=== PATIENT | female | born 1955 | race Caucasian/White ===

== ENCOUNTER 2018-09-04 16:51 | Inpatient (IN) | payer BC, SELFPAY ==
[~2018-09-04 16:51] MED LIST: Iopamidol 370 76% 100 ML VIAL ONE; Sodium Chloride 0.9% 1,000 ML BAG ONE
[2018-09-04 17:21] LABS: #Basophils 0.1 thou/uL (0.0-0.2); #Eosinphils 0.2 thou/uL (0.0-0.7); #Lymphocytes 3.2 thou/uL (1.20-3.40); #Monocytes 0.5 thou/uL (0.11-0.59); %Basophils 0.8 % (0.0-1.0); %Eosinophils 2.2 % (0.0-10.0); %Lymphocytes 40.5 % (21.0-51.0); %Monocytes 6.8 % (0.0-10.0); %Neutrophils 49.7 % (42.0-75.0); Hemoglobin 14.2 g/dL (12.0-16.0); Mean Corpuscular HGB CONC 34.4 g/dL (32.0-36.0); Mean Corpuscular Hemoglobin 31.5 pg (27.0-31.0); Mean Corpuscular Volume 91.6 fL (78.0-98.0); Mean Platelet Volume 7.5 fL (7.4-10.4); Platelet Count 308 thou/uL (130-400); RBC Distribution Width 11.6 % (11.5-14.5); Red Blood Cell (RBC) Count 4.51 mill/uL (4.20-5.40)
[2018-09-04 17:42] LABS: ALT (SGPT) 15 U/L (8-55); AST (SGOT) 23 U/L (5-34); Albumin 4.6 g/dL (3.4-4.8); Alkaline Phosphatase 62 U/L (40-150); Anion Gap 17 mmol/L (10-20); BUN (Urea Nitrogen) 13 mg/dL (9.8-20.1); Bilirubin, Total 0.3 mg/dL (0.2-1.2); CK (CPK) 87 U/L (29-168); Calc. Creatinine Clearance 0 mL/min (70-130); Calcium 10.2 mg/dL (7.8-10.44); Carbon Dioxide 23 mmol/L (23-31); Chloride 103 mmol/L (98-107); Estimated GFR-MDRD 75; Glucose 94 mg/dL (80-115); Potassium 3.6 mmol/L (3.5-5.1); Protein, Total 7.6 g/dL (6.0-8.3); Sodium 139 mmol/L (136-145)
[2018-09-04 17:47] LABS: CKMB 1.2 ng/mL (0-6.6); Troponin I 0.043 ng/mL (< 0.028)
--- NOTE | 2018-09-04 17:54 | RAD ---
SINGLE VIEW OF THE CHEST: 09/04/18 COMPARISON: None. HISTORY: Chest pain that began 15 minutes prior to arrival. FINDINGS: Single view of the chest shows a normal sized cardiomediastinal silhouette. There is no evidence of c onsolidation, mass, or pleural effusion. The bones are unremarkable. IMPRESSION: No evidence of acute cardiopulmonary disease. POS: [facility]
[2018-09-04] MEDS ORDERED: Nitroglycerin 2% Ointment 1 INCH/1 GM Packet ONE (18:31)
--- NOTE | 2018-09-04 19:33 | PDOC.FPRHP ---
- History of Present Illness Chief Complaint: Chest Pain History of Present Illness: 62 yo F presents with CP that began around 16:30 today while seated watching a football game. Pain continually worsened and she presented to ED 30 minutes later. Pain described as "tightness", radiating to back, midsternal, pt felt "flushed". Associated with some SOB and weakness initially which has since improved. Pain originally >10/10, now 2/10. Not affected by nitro. No N/V, never had this pain in past. Has not seen physician in >3 years. ED Course: Nitro - Allergies/Adverse Reactions Allergies Allergy/AdvReac Type Severity Reaction Status Date / Time No Known Drug Allergies Allergy Verified 09/05/18 00:23 - Home Medications Medication Instructions Recorded Confirmed Type Atorvastatin Calcium [Lipitor] 40 mg PO HS #30 tab 09/05/18 Rx Clopidogrel Bisulfate [Plavix] 75 mg PO DAILY #30 tab 09/05/18 Rx Multivitamin [Multivitamins] 1 cap PO DAILY 09/05/18 09/05/18 History - History PMHx: HLD PSHx: Hysterectomy, breast implants, hemorrhoid surgery FHx: Father CHF and prostate CA Social: Smoker off and on for her whole life, currently smokes 1/3 PPD. - Review of Systems General: denies: fever/chills Eyes: denies: eye pain, vision changes ENT: denies: nasal congestion, rhinorrhea Respiratory: reports: shortness of breath. denies: cough Cardiovascular: reports: chest pain, palpitation Gastrointestinal: denies: nausea, vomiting Genitourinary: denies: dysuria Skin: denies: rashes, lesions Musculoskeletal: denies: pain, tenderness Neurological: reports: weakness. denies: numbness Psychological: denies: anxiety, depression - Vital signs BP: 147/92 HR: 82 RR: 16 Tmax: 97.9 Pox: 97% on RA Wt: 52 kg - Physical Exam Constitutional: NAD, awake, alert and oriented HEENT: normocephalic and atraumatic, grossly normal vision, grossly normal hearing Neck: FROM, trachea midline Chest: no-tender to palpation Heart: RRR, normal S1/S2, no murmurs/rubs/gallops, pulses present, no edema Lungs: CTAB, no respiratory distress, no rales/rhonchi, no wheezing Abdomen: soft, non-tender, bowel sounds present, no masses/distention Musculoskeletal: normal structure, normal tone Neurological: no focal deficit Skin: no rash/lesions, good turgor, capillary refill <2 seconds Heme/Lymphatic: no unusual bruising or bleeding Psychiatric: normal mood and affect FMR H&P: Results - Labs Result Diagrams: 09/05/18 04:07 09/05/18 04:07 Lab results: WBC 8.0 thou/uL (4.8-10.8) 09/04/18 17:11 Hgb 14.2 g/dL (12.0-16.0) 09/04/18 17:11 Hct 41.3 % (36.0-47.0) 09/04/18 17:11 MCV 91.6 fL (78.0-98.0) 09/04/18 17:11 Plt Count 308 thou/uL (130-400) 09/04/18 17:11 Neutrophils % 49.7 % (42.0-75.0) 09/04/18 17:11 Sodium 139 mmol/L (136-145) 09/04/18 17:11 Potassium 3.6 mmol/L (3.5-5.1) 09/04/18 17:11 Chloride 103 mmol/L (98-107) 09/04/18 17:11 Carbon Dioxide 23 mmol/L (23-31) 09/04/18 17:11 BUN 13 mg/dL (9.8-20.1) 09/04/18 17:11 Creatinine 0.78 mg/dL (0.6-1.1) 09/04/18 17:11 Glucose 94 mg/dL (80-115) 09/04/18 17:11 Calcium 10.2 mg/dL (7.8-10.44) 09/04/18 17:11 Total Bilirubin 0.3 mg/dL (0.2-1.2) 09/04/18 17:11 AST 23 U/L (5-34) 09/04/18 17:11 ALT 15 U/L (8-55) 09/04/18 17:11 Alkaline Phosphatase 62 U/L (40-150) 09/04/18 17:11 Creatine Kinase 87 U/L (29-168) 09/04/18 17:11 CK-MB (CK-2) 1.2 ng/mL (0-6.6) 09/04/18 17:12 Serum Total Protein 7.6 g/dL (6.0-8.3) 09/04/18 17:11 Albumin 4.6 g/dL (3.4-4.8) 09/04/18 17:11 - EKG Interpretation EKG: EKG: nonspecific ST changes, repolarization abnormality FMR H&P: A/P - Problem List (1) NSTEMI (non-ST elevated myocardial infarction) Current Visit: Yes Status: Acute Code(s): I21.4 - NON-ST ELEVATION (NSTEMI) MYOCARDIAL INFARCTION (2) HLD (hyperlipidemia) Current Visit: Yes Status: Chronic Code(s): E78.5 - HYPERLIPIDEMIA, UNSPECIFIED (3) Tobacco abuse Current Visit: Yes Status: Chronic Code(s): Z72.0 - TOBACCO USE - Plan 62 yo F with CC of chest pain admitted for NSTEMI NSTEMI - EKG showed nonspecific ST changes - trop 0.043--> 2.040. Will continue to trend with repeat EKGs - Nitro patch on, continue nitro prn. Pt currently comfortable with 2/10 pain. - considering radiation to back, dissection was considered. D-dimer negative. - Statin, ASA, therapeutic lovenox - Mag, phos, FLP, TSH pending - CT dissection negative. Incidental finding of splenic aneurysm, will need f/u CTA abdomen in 1 yr HLD - not on statin - will start high-intensity statin Tobacco abuse - encourage cessation - nicotine patch Ppx: therapeutic lovenox, no GI Diet: HH FMR H&P: Upper Level - Pertinent history 62 y/o F w/ PMHx of tobacco abuse and HLD presents for evaluation of acute onset of substernal chest pain described as tightness w/ radiation into the back. Associated w/ SOB and weakness. Notes BP elevated upon onset 160's systolic when she usually runs in the 110's at home. Denies any change in diet/ activity level. Onset at rest. Not currently taking any medication for her HLD. FHx of cardiac disease. Reports initially pain >10/10 and now 2/10 which started to improve before any interventions given. Currently w/ nitro patch on and notes no change since placement. - Pertinent findings Vitals per Surgery Teacher Notes Trop. - 0.043 - 2.040 EKG - NSR rate 89, normal axis, no t-wave abnormalities. ST seg elevation likely 2/2 early repolarization D-Dimer - <0.27 GEN: NAD, resting in bed comfortably Cards: RRR, no murmurs, rubs, or gallops PULM: CTA-b/l, no wheezes, rales, or rhonci GI: BSx4, non-TTP Ext: Moves all 4 ext, equally - Plan Date/Time: 09/04/181932 ISilas. Arie Ramírez MD, have evaluated this patient and agree with findings/plan as outlined by internal combustion engine assembler resident. Pertinent changes/additions are listed here. 62 y/o F w/: 1) NSTEMI - Pt w/ indeterminate trop and EKG abnormalities now w/ positive trop - Will admit to tele inpt and continue trending cardiac enzymes and start therapeutic lovenox - Discussed w/ Dr. Pineda for curbside consult and agrees w/ plan to treat for NSTEMI. Does not think patient currently having STEMI at this time - ST-segment changes noted felt to be likely to early repolarization, will plan to repeat EKG and check Mag/Phos - CT-dissection protocol in setting of acute onset CP w/ elevated BP and radiation into the back to r/o aortic dissection. renal fxn w/ GFR >60 - D-dimer negative, low suspicion for PE - Check FLP, TSH, Mg, Phos. Random BG WNL, no need for A1c at this time - Intelligence Group Supervisor on tobacco cessation - Start patient on High intensity statin and daily ASA 2) HLD - FLP in the AM - Start on High intensity statin 3) Tobacco abuse - Nicotine patch - Counseling on cessation Admit: Tele/Inpt Code Status: DNR PPx: Th Lovenox Assessment and Plan discussed w/ Dr. Churchill who is in agreement. Attending Addendum - Attending Addendum Date/Time: 09/04/182105 I personally evaluated the patient and discussed the management with Dr. Murrell. I agree with the History, Examination, Assessment and Plan documented above with any addition or exceptions noted below. The patient presented to the ER earlier in the evening with chest pain in center of chest radiating to the back. She noted it resolved with medications. She was also hypertensive on arrival. CT dissection was negative for dissection. Initial EKG showed nonspecific changes. The 2nd set of cardiac enzymes was positive indicating an nstemi. Case was discussed with Dr. Pineda. I discussed these findings with the patient and shortly afterward she then started having severe crushing chest pain and repeat EKG indicated a STEMI. Dr. Pineda came to evaluate the patient and took her back to the pit laborer. Counseled on smoking cessation and the likely meds she will need to be on after cath.
--- NOTE | 2018-09-04 20:30 | CT ---
CTA AORTIC DISSECTION PROTOCOL (CHEST AND ABDOMEN) 09/04/18 HISTORY: Chest pain. TECHNIQUE: Multiple CTA images were obtained of the chest and abdomen utilizing IV contrast and 3D reformatted i maging. No comparisons are available. FINDINGS: No acute aortic dissection, occlusion, or aneurysmal formation seen involving the aorta. The celiac, SMA, renal and TASH arteries appear patent. 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 The a ortic bifurcation is patent. The splenic artery has two separate aneurysms. One of the largest is seen within the distal splenic a rtery measuring 1.3 cm on image 107, series 2. There is an additional 7 mm partially thrombosed splen ic artery aneurysm slightly distal within the splenic artery on image 101 of series 2. There are mild pleural parenchymal opacities in the lung apices. No focal consolidation is evident. N o enlarged lymph nodes are present. No focal hepatic lesion is grossly evident. The adrenal gland and pancreas appear within normal limits. The kidneys demonstrate bilateral extrarenal pelves. There is mild amount of retained stool within the colon. Visualized small bowel is of normal caliber. There is grade I anterolisthesis of L4 on L5. There is multilevel spondylosis of the thoracic and lum bar spine. There is a bone island within T12. IMPRESSION: 1. No acute aortic stenosis, occlusion or aneurysmal formation. 2. Splenic artery aneurysms. The largest measures up to 1.3 cm. Followup CTA examination of the abdomen in one year to document stability is recommended. 3. Other chronic findings as above. POS: [facility]
[2018-09-04] MEDS ORDERED: Heparin 1,000 UNITS/ML VIAL ONE (21:45)
[2018-09-04] MEDS ORDERED: Heparin 25,000 units/D5W 500 ML ONE (21:45)
[2018-09-04 22:01] LABS: #Basophils 0.1 thou/uL (0.0-0.2); #Eosinphils 0.2 thou/uL (0.0-0.7); #Monocytes 0.8 thou/uL (0.11-0.59); #Neutrophils 5.4 thou/uL (1.40-6.50); %Basophils 0.7 % (0.0-1.0); %Eosinophils 1.5 % (0.0-10.0); %Lymphocytes 38.6 % (21.0-51.0); %Monocytes 7.5 % (0.0-10.0); %Neutrophils 51.8 % (42.0-75.0); Hemoglobin 14.4 g/dL (12.0-16.0); Mean Corpuscular HGB CONC 34.6 g/dL (32.0-36.0); Mean Corpuscular Hemoglobin 31.3 pg (27.0-31.0); Mean Corpuscular Volume 90.4 fL (78.0-98.0); Mean Platelet Volume 7.6 fL (7.4-10.4); Platelet Count 317 thou/uL (130-400); RBC Distribution Width 11.6 % (11.5-14.5); Red Blood Cell (RBC) Count 4.62 mill/uL (4.20-5.40); White Blood Cell (WBC) Count 10.5 thou/uL (4.8-10.8)
[2018-09-04 22:04] LABS: INR-International Normal Ratio 0.9; PTT 28.8 SEC (22.9-36.1); Prothrombin Time 12.7 SEC (12.0-14.7)
[2018-09-04 22:11] LABS: ALT (SGPT) 15 U/L (8-55); AST (SGOT) 30 U/L (5-34); Albumin 4.6 g/dL (3.4-4.8); Alkaline Phosphatase 65 U/L (40-150); Anion Gap 14 mmol/L (10-20); BUN (Urea Nitrogen) 11 mg/dL (9.8-20.1); Bilirubin, Total 0.4 mg/dL (0.2-1.2); Calc. Creatinine Clearance 0 mL/min (70-130); Calcium 10.4 mg/dL (7.8-10.44); Carbon Dioxide 24 mmol/L (23-31); Chloride 102 mmol/L (98-107); Estimated GFR-MDRD 78; Glucose 99 mg/dL (80-115); Potassium 3.8 mmol/L (3.5-5.1); Protein, Total 7.6 g/dL (6.0-8.3); Sodium 136 mmol/L (136-145)
[2018-09-04 22:19] LABS: CKMB 8.2 ng/mL (0-6.6); Troponin I 2.966 ng/mL (< 0.028)
[2018-09-04] MEDS ORDERED: Midazolam HCl 2 mg/2 ml Vial ONE (22:22)
[2018-09-04] MEDS ORDERED: Heparin 10,000 UNITS/1 ML VIAL ONE ×2 (22:22→22:37)
[2018-09-04] MEDS ORDERED: Fentanyl 100 MCG/2 ML VIAL ONE (22:23)
[2018-09-04] MEDS ORDERED: Aggrastat 12.5 MG/250 ML 250 ML ONE (22:28)
[2018-09-04] MEDS ORDERED: Clopidogrel Bisulfate 300 MG TAB ONE (22:37)
[2018-09-04] MEDS ORDERED: Nitroglycerin 100MG/250ML BOT 250 ML ONE (22:38)
[2018-09-04] MEDS ORDERED: Nitroglycerin 0.4 MG TAB (25 Tab Bottle) SL PRN (23:00)
[2018-09-04] MEDS ORDERED: Aggrastat 12.5 MG/250 ML 250 ML IVPB SCH (23:00)
[2018-09-04] MEDS ORDERED: Morphine 4 MG/ML VIAL SLOW IVP PRN (23:00)
[2018-09-04] MEDS ORDERED: Sodium Chloride 0.9% 1,000 ML IV SCH (23:00)
[2018-09-04] MEDS ORDERED: Morphine 2 MG/ML SYRINGE SLOW IVP PRN (23:00)
[2018-09-04] MEDS ORDERED: Ondansetron PF 4 MG/2 ML Vial IVP PRN (23:26)
[2018-09-04] MEDS ORDERED: Acetaminophen 325 MG TAB PO PRN (23:32)
[2018-09-04] MEDS ORDERED: Nitroglycerin 0.4 MG TAB (25 Tab Bottle) PO PRN (23:32)
[2018-09-04] MEDS ORDERED: Ondansetron ODT 4 MG TAB PO PRN (23:32)
[2018-09-04] MEDS ORDERED: Nicotine 21 MG PATCH TD SCH (23:45)
[2018-09-05 00:22] VITALS: BMI 19.6
[2018-09-05 02:05] LABS: Troponin I 3.708 ng/mL (< 0.028)
--- NOTE | 2018-09-05 02:06 | PDOC.EVN ---
Event Note - Event Note Event Note: Patient had worsening chest pain while in ED. EKG repeated showing anterior STEMI. Cardiology, Dr. Pineda, called directly from ED and patient taken back for cath.
[2018-09-05] MEDS ORDERED: Heparin 10,000 UNITS/1 ML VIAL ONE (02:57)
--- NOTE | 2018-09-05 04:02 | CON ---
DATE OF CONSULTATION: HISTORY OF PRESENT ILLNESS: Opal Reed is a 62-year-old white female without any previous cardiac history. Today at approximately 4:30 p.m., she had onset of substernal chest pressure. This radiated to her back, associated with shortness of breath. Her pain seemed to improve and she underwent CT angiogram of the chest, which did not reveal any evidence of aortic dissection. She was going to be admitted for rule out and started having worsening of her chest pain. Repeat EKG showed ST-segment elevation anterolaterally and STEMI has been activated. PAST MEDICAL HISTORY: Hypercholesterolemia, on no medications. No history of diabetes or hypertension. MEDICATIONS: None. ALLERGIES: NONE. OPERATIONS: Hysterectomy and breast augmentation. SOCIAL HISTORY: She smokes less than 1 pack per day. She occasionally drinks. FAMILY HISTORY: Father had congestive heart failure, but no history of myocardial infarction. REVIEW OF SYSTEMS: Otherwise unremarkable. PHYSICAL EXAMINATION: VITAL SIGNS: Blood pressure 120/80, pulse of 80. HEENT: PERRLA. NECK: Supple. CHEST: Clear. CARDIAC: S1 and S2 are normal without any S3, S4, or murmurs. ABDOMEN: Normal bowel sounds without tenderness. EXTREMITIES: Revealed no clubbing, cyanosis, or edema. NEUROLOGICAL: Grossly intact. SKIN: Warm and dry. LABORATORY DATA: EKG shows findings consistent with anterolateral myocardial infarction. CBC is unremarkable. D-dimer is less than 0.27. Sodium 139, potassium 3.6, chloride 103, carbon dioxide 23, BUN 13, creatinine 0.78. Troponin I was 0.043 and has increased to 0.090. IMPRESSION: 1. Anterolateral ST-elevation myocardial infarction. 2. Smoker. 3. Hypercholesterolemia, untreated. PLAN: Situation was discussed with the patient and her family. It was recommended that she undergo an emergent catheterization. Risks were discussed including , myocardial infarction, dye reaction, vascular injury, CVA, transfusion, limb loss, renal loss, etc. Risk of intervention with stent placement was discussed including , myocardial infarction, emergent CABG, restenosis, stent thrombosis, vessel perforation, etc. I am concerned about her lack of funding for jail medication and would only place a bare-metal stent. Job ID: [id number] [facility] [place] [facility]
[2018-09-05 04:50] LABS: #Eosinphils 0.1 thou/uL (0.0-0.7); #Lymphocytes 1.9 thou/uL (1.20-3.40); #Monocytes 0.4 thou/uL (0.11-0.59); #Neutrophils 5.2 thou/uL (1.40-6.50); %Basophils 0.3 % (0.0-1.0); %Eosinophils 0.8 % (0.0-10.0); %Lymphocytes 24.6 % (21.0-51.0); %Monocytes 5.7 % (0.0-10.0); %Neutrophils 68.6 % (42.0-75.0); Hemoglobin 11.8 g/dL (12.0-16.0); Mean Corpuscular Hemoglobin 31.4 pg (27.0-31.0); Mean Corpuscular Volume 89.8 fL (78.0-98.0); Mean Platelet Volume 7.7 fL (7.4-10.4); Platelet Count 257 thou/uL (130-400); RBC Distribution Width 11.6 % (11.5-14.5); Red Blood Cell (RBC) Count 3.77 mill/uL (4.20-5.40); White Blood Cell (WBC) Count 7.6 thou/uL (4.8-10.8)
[2018-09-05 04:53] LABS: ALT (SGPT) 15 U/L (8-55); AST (SGOT) 25 U/L (5-34); Albumin 3.9 g/dL (3.4-4.8); Alkaline Phosphatase 45 U/L (40-150); Anion Gap 14 mmol/L (10-20); BUN (Urea Nitrogen) 11 mg/dL (9.8-20.1); Bilirubin, Total 0.5 mg/dL (0.2-1.2); Calc. Creatinine Clearance 75 mL/min (70-130); Calcium 9.4 mg/dL (7.8-10.44); Carbon Dioxide 19 mmol/L (23-31); Cardiac Risk 3.5 (Less than 4.5); Chloride 109 mmol/L (98-107); Cholesterol 185 mg/dl (< 200 Desired); Estimated GFR-MDRD Greater than 90; Globulin 2.1 g/dL (2.4-3.5); Glucose 122 mg/dL (80-115); HDL Cholesterol 53 mg/dL (>60 Neg Risk); LDL Cholesterol, Calculated 115 mg/dL; Magnesium 1.9 mg/dL (1.6-2.6); Phosphorus 3.5 mg/dL (2.3-4.7); Sodium 138 mmol/L (136-145); Triglycerides 87 mg/dL (Less than 150)
[2018-09-05] MEDS ORDERED: Nicotine 21 MG PATCH TD SCH ×2 (06:00→21:00)
--- NOTE | 2018-09-05 07:09 | PDOC.FM ---
- Subjective Subjective: Patient found in bed resting comfortably. She denies any continued CP. No specific complaints this morning. No acute events following PCI last night. - Objective MAR Reviewed: Yes Vital Signs & Weight: Vital Signs (12 hours) Temp Pulse Resp BP Pulse Ox 09/05/18 04:00 98.3 F 09/05/18 00:00 98.3 F 95 09/04/18 23:45 77 22 H 138/79 Weight Weight 52 kg Most Recent Monitor Data Heart Rate from ECG 81 NIBP 108/62 NIBP BP-Mean 77 Respiration from ECG 21 SpO2 100 I&O: 09/04/18 09/05/18 09/06/18 06:59 06:59 06:59 Intake Total 55 Output Total 410 Balance -355 Result Diagrams: 09/05/18 04:07 09/05/18 04:07 <Umer Onofre - Last Filed: 09/05/18 07:07> - Objective Vital Signs & Weight: Vital Signs (12 hours) Temp Pulse Pulse BP BP Pulse Ox Pulse Ox 09/05/18 11:25 94 88 119/74 136/70 100 09/05/18 11:00 97.9 F 09/05/18 08:02 100 09/05/18 08:00 98.2 F 09/05/18 04:00 98.3 F Pulse Ox 09/05/18 11:25 100 09/05/18 11:00 09/05/18 08:02 09/05/18 08:00 09/05/18 04:00 Weight Weight 52 kg Most Recent Monitor Data Heart Rate from ECG 99 NIBP 124/80 NIBP BP-Mean 94 Respiration from ECG 18 SpO2 100 I&O: 09/04/18 09/05/18 09/06/18 06:59 06:59 06:59 Intake Total 805 600 Output Total 445 440 Balance 360 160 Result Diagrams: 09/05/18 04:07 09/05/18 04:07 <Alysia Churchill - Last Filed: 09/05/18 15:13> Phys Exam - Physical Examination Constitutional: NAD HEENT: moist MMs Neck: no JVD Respiratory: clear to auscultation bilateral Cardiovascular: RRR, no significant murmur Gastrointestinal: soft, non-tender, no distention Musculoskeletal: no edema Neurological: moves all 4 limbs Psychiatric: A&O x 3 <Umer Onofre - Last Filed: 09/05/18 07:07> Dx/Plan (1) ST elevation (STEMI) myocardial infarction involving left anterior descending coronary artery Code(s): I21.02 - STEMI INVOLVING LEFT ANTERIOR DESCENDING CORONARY ARTERY Status: Acute (2) HLD (hyperlipidemia) Code(s): E78.5 - HYPERLIPIDEMIA, UNSPECIFIED Status: Chronic (3) Tobacco abuse Code(s): Z72.0 - TOBACCO USE Status: Chronic - Plan Plan: STEMI involving LAD s/p stent on 09/04 - doing well following stent, still in bed with pressure over R femoral artery - Continue Plavix and Lovenox - Continue to monitor on tele for arrhythmia, will move to tele/dc pending Cardiology recommendation HLD - previous dx, however patient was not on statin. Has been started on Lipitor, will continue at home Tobacco use - student counsellor on cessation Dispo: patient doing well post stent. Will likely be ready to dc in the next 24- 48 hours. <Umer Onofre - Last Filed: 09/05/18 07:07> (1) NSTEMI (non-ST elevated myocardial infarction) Code(s): I21.4 - NON-ST ELEVATION (NSTEMI) MYOCARDIAL INFARCTION Status: Acute (2) HLD (hyperlipidemia) Code(s): E78.5 - HYPERLIPIDEMIA, UNSPECIFIED Status: Chronic (3) Tobacco abuse Code(s): Z72.0 - TOBACCO USE Status: Chronic <Alysia Churchill - Last Filed: 09/05/18 15:13> Attending Addendum - Attending Addendum Date/Time: 09/05/18 [id number] I personally evaluated the patient and discussed the management with Dr. Onofre. I agree with the History, Examination, Assessment and Plan documented above with any addition or exceptions noted below. The patient is doing well this morning, free of chest pain. She had 3 bare metal stents placed in the LAD overnight. <Alysia Churchill - Last Filed: 09/05/18 15:13>
[2018-09-05] MEDS ORDERED: Enoxaparin Sodium 60 MG/0.6 ML SYRINGE SC SCH ×2 (09:00)
[2018-09-05] MEDS: Clopidogrel Bisulfate 75 MG TAB PO SCH (10:20)
[2018-09-05] MEDS: Atorvastatin Calcium 40 MG TAB PO SCH (20:33)
--- NOTE | 2018-09-06 06:33 | PDOC.FM ---
- Subjective Subjective: Pt resting in bed. Pt denies any acute events overnight. Denies any chest pain, SOB. Denies any headaches, vision changes or lightheadness. Denies any leg swelling. Pt denies any acute concerns at this time. - Objective MAR Reviewed: Yes Vital Signs & Weight: Vital Signs (12 hours) Temp Pulse Resp BP Pulse Ox 09/06/18 00:00 98.6 F 09/05/18 22:59 80 20 116/68 09/05/18 20:00 98.8 F 09/05/18 19:25 100 Weight Weight 52 kg Most Recent Monitor Data Heart Rate from ECG 72 NIBP 100/61 NIBP BP-Mean 74 Respiration from ECG 19 SpO2 99 I&O: 09/04/18 09/05/18 09/06/18 06:59 06:59 06:59 Intake Total 805 840 Output Total 445 1210 Balance 360 -370 Result Diagrams: 09/05/18 04:07 09/05/18 04:07 EKG Reviewed by me: Yes Radiology Reviewed by me: Yes Radiology: ECHO: Shows EF 40-45%, Diastolic Dysfunction. Hypokinetic LV wall motion. <Francisco Javier Alfaro - Last Filed: 09/06/18 06:32> - Objective Vital Signs & Weight: Vital Signs (12 hours) Temp Pulse Ox 09/06/18 07:48 100 09/06/18 07:00 97.8 F 09/06/18 04:00 98.5 F Weight Weight 52 kg Most Recent Monitor Data Heart Rate from ECG 85 NIBP 129/70 NIBP BP-Mean 89 Respiration from ECG 20 SpO2 100 I&O: 09/05/18 09/06/18 09/07/18 06:59 06:59 06:59 Intake Total 805 1090 290 Output Total 445 1345 300 Balance 360 -255 -10 Result Diagrams: 09/05/18 04:07 09/05/18 04:07 <Alysia Churchill - Last Filed: 09/06/18 13:02> Phys Exam - Physical Examination Constitutional: NAD HEENT: PERRLA, moist MMs Neck: no nodes, supple, full ROM Respiratory: no wheezing, clear to auscultation bilateral Cardiovascular: RRR, no significant murmur, no rub Gastrointestinal: soft, non-tender, no distention, positive bowel sounds Musculoskeletal: no edema, pulses present Neurological: non-focal, normal sensation, moves all 4 limbs Lymphatic: no nodes Psychiatric: normal affect, A&O x 3 Skin: no rash, normal turgor <Francisco Javier Alfaro - Last Filed: 09/06/18 06:32> Dx/Plan (1) ST elevation (STEMI) myocardial infarction involving left anterior descending coronary artery Code(s): I21.02 - STEMI INVOLVING LEFT ANTERIOR DESCENDING CORONARY ARTERY Status: Acute (2) HLD (hyperlipidemia) Code(s): E78.5 - HYPERLIPIDEMIA, UNSPECIFIED Status: Chronic (3) Tobacco abuse Code(s): Z72.0 - TOBACCO USE Status: Chronic (4) Heart failure Code(s): I50.9 - HEART FAILURE, UNSPECIFIED Status: Acute Qualifiers: Heart failure type: combined systolic and diastolic Heart failure chronicity: acute Qualified Code(s): I50.41 - Acute combined systolic ( congestive) and diastolic (congestive) heart failure - Plan Plan: STEMI involving LAD s/p stent on 09/04 - doing well following stent - Continue Plavix and Lovenox - Continue to monitor on tele for arrhythmia, will move to tele/dc pending Cardiology recommendation -Will continue to follow Cardiology recommendations New onset Mixed Heart Failure -ECHO shows EF 40-45% with diastolic dysfunction. Pt not having any swelling or SOB -Cardiology on the case- Dr. Pineda. Follow recommendations. -consulte HF clinic/ cardiac rehab. HLD -started on lipitor. Tobacco use - estate planning counselor on cessation <Francisco Javier Alfaro - Last Filed: 09/06/18 06:32> (1) NSTEMI (non-ST elevated myocardial infarction) Code(s): I21.4 - NON-ST ELEVATION (NSTEMI) MYOCARDIAL INFARCTION Status: Acute (2) HLD (hyperlipidemia) Code(s): E78.5 - HYPERLIPIDEMIA, UNSPECIFIED Status: Chronic (3) Tobacco abuse Code(s): Z72.0 - TOBACCO USE Status: Chronic <Alysia Churchill - Last Filed: 09/06/18 13:02> Attending Addendum - Attending Addendum Date/Time: 09/06/18 1301 I personally evaluated the patient and discussed the management with Dr. Alfaro. I agree with the History, Examination, Assessment and Plan documented above with any addition or exceptions noted below. Patient is feeling well this morning. Echo shows reduced EF. Will start low dose delbert and beta nimisha. Follow-up with cardiology recs. <Alysia Churchill - Last Filed: 09/06/18 13:02>
[2018-09-06] MEDS: Clopidogrel Bisulfate 75 MG TAB PO SCH (08:23)
[2018-09-06] MEDS ORDERED: Prevnar 13-Val Conj/PF 0.5 ML SYRINGE IM ONE (14:00)
[2018-09-06] MEDS: Atorvastatin Calcium 40 MG TAB PO SCH (21:26)
--- NOTE | 2018-09-07 07:18 | PDOC.FM ---
- Subjective Subjective: Pt reports doing well this morning. Resting in bed. No acute events overnight. Denies any recent chest pain or SOB. Denies any swelling. No other acute concerns at this time. - Objective MAR Reviewed: Yes Vital Signs & Weight: Vital Signs (12 hours) Temp Pulse Resp BP Pulse Ox 09/07/18 04:00 98.0 F 77 16 102/59 L 99 09/06/18 19:35 98.4 F 85 16 108/62 98 Weight Weight 55.157 kg Most Recent Monitor Data Heart Rate from ECG 85 NIBP 129/70 NIBP BP-Mean 89 Respiration from ECG 20 SpO2 100 I&O: 09/06/18 09/07/18 09/08/18 06:59 06:59 06:59 Intake Total 1090 1890 Output Total 1345 300 Balance -255 1590 Result Diagrams: 09/05/18 04:07 09/05/18 04:07 EKG Reviewed by me: Yes Radiology Reviewed by me: Yes (No new imaging to review) <Francisco Javier Alfaro - Last Filed: 09/07/18 07:16> - Objective Vital Signs & Weight: Vital Signs (12 hours) Temp Pulse Resp BP BP Pulse Ox 09/07/18 08:00 96 09/07/18 07:29 99.6 F 91 18 125/66 96 09/07/18 04:00 98.0 F 77 16 102/59 L 99 Weight Weight 55.157 kg Most Recent Monitor Data Heart Rate from ECG 85 NIBP 129/70 NIBP BP-Mean 89 Respiration from ECG 20 SpO2 100 I&O: 09/06/18 09/07/18 09/08/18 06:59 06:59 06:59 Intake Total 1090 1890 Output Total 1345 300 Balance -255 1590 Result Diagrams: 09/05/18 04:07 09/05/18 04:07 <Alysia Churchill - Last Filed: 09/07/18 14:49> Phys Exam - Physical Examination Constitutional: NAD HEENT: PERRLA, moist MMs Neck: no nodes, no JVD, supple Respiratory: no wheezing, no rales, no rhonchi, clear to auscultation bilateral Cardiovascular: RRR, no significant murmur, no rub Gastrointestinal: soft, non-tender, no distention, positive bowel sounds Musculoskeletal: no edema, pulses present Neurological: non-focal, normal sensation Lymphatic: no nodes Psychiatric: normal affect, A&O x 3 Skin: no rash <Francisco Javier Alfaro - Last Filed: 09/07/18 07:16> Dx/Plan (1) ST elevation (STEMI) myocardial infarction involving left anterior descending coronary artery Code(s): I21.02 - STEMI INVOLVING LEFT ANTERIOR DESCENDING CORONARY ARTERY Status: Acute (2) HLD (hyperlipidemia) Code(s): E78.5 - HYPERLIPIDEMIA, UNSPECIFIED Status: Chronic (3) Heart failure Code(s): I50.9 - HEART FAILURE, UNSPECIFIED Status: Acute Qualifiers: Heart failure type: combined systolic and diastolic Heart failure chronicity: acute Qualified Code(s): I50.41 - Acute combined systolic ( congestive) and diastolic (congestive) heart failure (4) Tobacco abuse Code(s): Z72.0 - TOBACCO USE Status: Chronic - Plan Plan: STEMI involving LAD s/p stent on 09/04 - doing well following stent - Continue Plavix and Lovenox - Continue to monitor on tele for arrhythmia, will move to tele./dc pending Cardiology recommendation -Will continue to follow Cardiology recommendations New onset Mixed Heart Failure -ECHO shows EF 40-45% with diastolic dysfunction. Pt not having any swelling or SOB -Cardiology on the case- Dr. Pineda. Follow recommendations. - HF clinic/ cardiac rehab consulted. Will follow recs -Would benefit from delbert/Beta nimisha. BP somewhat low. Will await recs. Possibly start in outpatient setting. HLD -started on lipitor. No SE at this time. Tobacco use - psychosocial rehabilitation counselor on cessation <Francisco Javier Alfaro - Last Filed: 09/07/18 07:16> (1) NSTEMI (non-ST elevated myocardial infarction) Code(s): I21.4 - NON-ST ELEVATION (NSTEMI) MYOCARDIAL INFARCTION Status: Acute (2) HLD (hyperlipidemia) Code(s): E78.5 - HYPERLIPIDEMIA, UNSPECIFIED Status: Chronic (3) Tobacco abuse Code(s): Z72.0 - TOBACCO USE Status: Chronic <Alysia Churchill - Last Filed: 09/07/18 14:49> Attending Addendum - Attending Addendum Date/Time: 09/07/18 7629 I personally evaluated the patient and discussed the management with Dr. Alfaro. I agree with the History, Examination, Assessment and Plan documented above with any addition or exceptions noted below. Will start low-dose carvedilol and likely will be able to go home if tolerates. <Alysia Churchill - Last Filed: 09/07/18 14:49>
[2018-09-07] MEDS: Clopidogrel Bisulfate 75 MG TAB PO SCH (09:21)
[2018-09-07] MEDS ORDERED: Carvedilol 3.125 MG TAB PO SCH ×3 (13:30→17:00)
[2018-09-07 17:08] VITALS: BP 132/72; TEMP 98.1
--- NOTE | 2018-09-10 16:07 | DIS ---
DATE OF ADMISSION: 09/04/2018 DATE OF DISCHARGE: 09/07/2018 CONSULTS: Cardiology, Dr. Lopez Pineda. PROCEDURES: 1. Cath, which showed one-vessel coronary artery disease in the LAD, bare-metal stent to the sub-sj-emeaue left anterior descending coronary artery was placed. Next, she had a chest x-ray on 09/04/2018, which showed no evidence of acute cardiopulmonary disease. She had a CT dissection on 09/04/2018, which showed no acute aortic stenosis, occlusion, or aneurysmal formation. 2. Splenic artery aneurysm measures up to 1.3 cm. Followup CTA examination of abdomen in 1 year to document stability recommended. 3. Other chronic findings as above. She then got an echocardiogram on 09/05/2018, which showed EF of 40% to 45%, dyskinetic motion of the apical wall of the left ventricle, hypokinetic motion of the apical septal wall of the left ventricle diastolic dysfunction and mild mitral regurgitation. PRIMARY DIAGNOSES: 1. ST-elevation myocardial infarction involving left anterior descending, status post bare-metal stent. 2. New-onset mixed heart failure. 3. Hyperlipidemia. 4. Tobacco abuse. DISCHARGE MEDICATIONS: Include; 1. Atorvastatin 40 mg p.o. at bedtime. 2. Carvedilol 3.125 mg p.o. b.i.d. 3. Plavix 75 mg p.o. daily. 4. Multivitamin one capsule p.o. daily. No medicines were discontinued. HISTORY OF PRESENT ILLNESS AND BRIEF HOSPITAL COURSE: This is a 62-year-old female, who came in to ER with chest pain that had began, had some shortness of breath with it and had not seen a physician in a few years. When she was admitted, the EKG showed N-STEMI at this time. Troponins were elevated from 0.043 to . She was placed on nitro patch and started on statin. She was then taken to the helper animal laboratory later that night, where she was found to have of the LAD and a bare-metal stent was placed. Then overnight, before they went to the helper animal laboratory ST-elevation on her EKGs transitioning her to a STEMI bare-metal stent. and she was monitored for the next few days. After the STEMI, her vital signs stable. No elevated blood pressures. We then started her on a low-dose Carvedilol due to the new-onset heart failure, started on low dose because her blood pressures at sometimes were in the 100s/60s, so did not want to drop her blood pressures too much. The patient never did have any more chest pain status post procedure. Tolerated the rest of her hospital stay. DISPOSITION: Stable. DISCHARGE LOCATION: Home. ACTIVITY: Activity as tolerated and will need to follow up for cardiac rehab in the [facility]. DIET: Cardiac diet. FOLLOWUP: She will need to follow up with [facility] within 1 week for hospital followup. Job ID: [id number]
--- NOTE | 2018-09-11 14:28 | EKG ---
Test Reason : Blood Pressure : / mmHG Vent. Rate : 089 BPM Atrial Rate : 089 BPM P-R Int : 126 ms QRS Dur : 080 ms QT Int : 354 ms P-R-T Axes : 056 061 060 degrees QTc Int : 430 ms Normal sinus rhythm ST elevation, consider early repolarization Borderline ECG #[address] elevation/WA Confirmed by AMANDA SMITH D.O. ([id number]), publication editor [employer] ([id number]) on 09/11/2018 2:28:36 PM Referred By: Confirmed By:AMANDA SMITH D.O.
--- NOTE | 2018-09-11 14:30 | EKG ---
Test Reason : CHEST PAIN Blood Pressure : / mmHG Vent. Rate : 094 BPM Atrial Rate : 094 BPM P-R Int : 130 ms QRS Dur : 078 ms QT Int : 372 ms P-R-T Axes : 075 066 060 degrees QTc Int : 465 ms Normal sinus rhythm ST elevation consider anterolateral injury or acute infarct * ACUTE ID * Abnormal ECG ST elevation V2 - V5 #2 Confirmed by AMANDA SMITH D.O. ([id number]), loan expeditor [employer] ([id number]) on 09/11/2018 2:30:00 PM Referred By: Confirmed By:AMANDA SMITH D.O.
== END 2018-09-07 18:25 | disposition home or self-care (01) | DRG 248 ==
LOC: ERS 16:51 → CCL 22:11 → CCU 23:24 → 2NO 09-06 09:45
PROVIDERS: ADMIT Family Medicine; ATTEND Family Medicine
PROC: 02703DZ Dilation of Coronary Artery, One Artery with Intraluminal Device, Percutaneous Approach (ICD-10-PCS; principal; 2018-09-04)
PROC: 4A023N7 Measurement of Cardiac Sampling and Pressure, Left Heart, Percutaneous Approach (ICD-10-PCS; 2018-09-04)
PROC: B2111ZZ Fluoroscopy of Multiple Coronary Arteries using Low Osmolar Contrast (ICD-10-PCS; 2018-09-04)
PROC: B2151ZZ Fluoroscopy of Left Heart using Low Osmolar Contrast (ICD-10-PCS; 2018-09-04)
DX: I21.3 ST elevation (STEMI) myocardial infarction of unspecified site (principal); I50.41 Acute combined systolic (congestive) and diastolic (congestive) heart failure; I72.8 Aneurysm of other specified arteries; E78.5 Hyperlipidemia, unspecified; F17.210 Nicotine dependence, cigarettes, uncomplicated; Z79.899 Other long term (current) drug therapy; Z66 Do not resuscitate
CPT/HCPCS: 36415; 36416; 71045; 71275; 80053; 80061; 82550; 82553; 83690; 83735; 84100; 84443; 84484; 85025; 85347; 85379; 85610; 85730; 90471; 90686; 92941; 92977; 93005; 93010; 93306; 93454; 93798; 94760; 96374; 96376; C1725; C1769; C1876; C1887; G0008; J1644; J1650; J2250; J2405; J3010; J3246; J7050; Q0162

== ENCOUNTER 2019-10-12 14:19 | Outpatient (CLI) | payer MEDICARE ==
--- NOTE | 2019-10-12 14:59 | MMO ---
Bilateral MAMMO Bilat Screen DDI+GURMEET. CLINICAL HISTORY: Patient is 64 years old and is seen for screening. The patient has no family history of breast cancer. The patient has no personal history of cancer. The patient has a history of bilateral Implants in 1990 - benign. VIEWS: The views performed were: bilateral craniocaudal with tomosynthesis and bilateral mediolateral oblique with tomosynthesis. FILMS COMPARED: The present examination has been compared to prior imaging studies performed at [facility] on 03/01/2015, and at [facility] on 02/13/2010, 02/18/2011 and 03/02/2012. This study has been interpreted with the assistance of computer-aided detection. MAMMOGRAM FINDINGS: There are scattered fibroglandular densities. Stable impants are seen. There are no suspicious masses, suspicious calcifications, or new areas of architectural distortion. IMPRESSION: THERE IS NO MAMMOGRAPHIC EVIDENCE OF MALIGNANCY. A ROUTINE FOLLOW-UP MAMMOGRAM IN 1 YEAR IS RECOMMENDED. THE RESULTS OF THIS EXAM WERE SENT TO THE PATIENT. ACR BI-RADS Category 2 - Benign finding MAMMOGRAPHY NOTE: 1. A negative mammogram report should not delay a biopsy if a dominant of clinically suspicious mass is present. 2. Approximately 10% to 15% of breast cancers are not detected by mammography. 3. Adenosis and dense breasts may obscure an underlying neoplasm. Reported by: TYREL GARCIA MD Electonically Signed: [id number]
== END 2019-10-12 14:20 | disposition home or self-care (01) ==
LOC: BICMAMMO 14:19
PROVIDERS: ATTEND Family Medicine
DX: Z12.31 Encounter for screening mammogram for malignant neoplasm of breast (principal); Z98.82 Breast implant status
CPT/HCPCS: 77063; 77067

== ENCOUNTER 2020-03-30 08:14 | Observation (INO) | payer MEDICARE ==
[2020-03-30] MEDS ORDERED: Nitroglycerin 2% Ointment 1 INCH/1 GM Packet ONE (08:25)
[2020-03-30 08:36] LABS: #Eosinphils 0.1 thou/uL (0.0-0.7); #Lymphocytes 1.9 thou/uL (1.20-3.40); #Monocytes 0.3 thou/uL (0.11-0.59); %Basophils 0.5 % (0.0-1.0); %Eosinophils 2.1 % (0.0-10.0); %Lymphocytes 35.7 % (21.0-51.0); %Neutrophils 55.7 % (42.0-75.0); Hemoglobin 13.7 g/dL (12.0-16.0); Mean Corpuscular Hemoglobin 30.5 pg (27.0-31.0); Mean Corpuscular Volume 92.5 fL (78.0-98.0); Mean Platelet Volume 7.4 fL (7.4-10.4); Platelet Count 283 thou/uL (130-400); RBC Distribution Width 11.5 % (11.5-14.5); Red Blood Cell (RBC) Count 4.49 mill/uL (4.20-5.40); White Blood Cell (WBC) Count 5.4 thou/uL (4.8-10.8)
[2020-03-30 09:02] LABS: ALT (SGPT) 27 U/L (8-55); AST (SGOT) 22 U/L (5-34); Albumin 4.4 g/dL (3.4-4.8); Alkaline Phosphatase 62 U/L (40-110); Anion Gap 14 mmol/L (10-20); BUN (Urea Nitrogen) 13 mg/dL (9.8-20.1); Bilirubin, Total 0.3 mg/dL (0.2-1.2); CK (CPK) 45 U/L (29-168); Calc. Creatinine Clearance 0 mL/min (70-130); Calcium 9.8 mg/dL (7.8-10.44); Carbon Dioxide 25 mmol/L (23-31); Chloride 104 mmol/L (98-107); Estimated GFR-MDRD 74; Globulin 2.6 g/dL (2.4-3.5); Glucose 142 mg/dL (80-115); Lipase 87 U/L (8-78); Potassium 3.7 mmol/L (3.5-5.1); Sodium 139 mmol/L (136-145)
--- NOTE | 2020-03-30 10:39 | RAD ---
PORTABLE UPRIGHT FRONTAL CHEST RADIOGRAPH: DATE: 03/30/2020. COMPARISON: 09/04/2018. HISTORY: Chest pressure. FINDINGS: Coronary arterial calcification and/or stent material overlies the cardiac silhouette on the left. T here is no pneumothorax, pleural fluid, focal consolidation, or alveolar edema. IMPRESSION: No focal consolidation or alveolar edema. POS: [facility]
[2020-03-30] MEDS ORDERED: Bisacodyl 5 MG TAB PO PRN (11:59)
[2020-03-30] MEDS ORDERED: Ondansetron ODT 4 MG TAB PO PRN (11:59)
[2020-03-30] MEDS ORDERED: Senokot S 8.6-50 MG TAB PO PRN (11:59)
[2020-03-30 12:02] LABS: Troponin I 0.014 ng/mL (< 0.028)
[2020-03-30 12:53] VITALS: BMI 20.3
[2020-03-30 15:16] LABS: Troponin I Less than 0.010 ng/mL (< 0.028)
--- NOTE | 2020-03-30 16:26 | CON ---
DATE OF CONSULTATION: 03/30/2020 PRIMARY CLOTH FINISHING RANGE OPERATOR CHIEF: Dr. Lopez Pineda. REASON FOR CONSULTATION: Chest pain. HISTORY OF PRESENT ILLNESS: Ms. Reed is a very pleasant 64-year-old white female, who comes to the hospital for chest fullness. She tells me that this is nothing like what she had back in 2018 when she had her anterior heart attack. She describes a fullness and heart beating much stronger than normal. She decided to come in for further evaluation as she has a history of coronary artery disease. Back in 2018, she came in with chest pain. She had ST elevations in the anterolateral leads and she was brought in emergently to the catheterization lab by Dr. Pineda, who eventually placed a drug-eluting stent in her LAD. Her rest of coronary circulation was unremarkable. She has done well since. She is followed up with Dr. Pineda and his nurse practitioner. On my evaluation, Ms. Reed is pain free. PAST MEDICAL HISTORY: 1. Coronary artery disease as above. 2. Hyperlipidemia. OUTPATIENT MEDICATIONS: 1. Atorvastatin 40 mg at bedtime. 2. Aspirin 81 a day. 3. Carvedilol 3.125 b.i.d. ALLERGIES: NO KNOWN DRUG ALLERGIES. SURGICAL HISTORY: 1. Hysterectomy. 2. Breast augmentation. SOCIAL HISTORY: Former smoker, less than a pack a day, quit on the day of her NV in 2018 in September. Social alcohol use. No drug use. FAMILY HISTORY: Father with congestive heart failure. No early coronary artery disease. REVIEW OF SYSTEMS: A 12-point review of systems was done and was all negative unless stated in the history of present illness. PHYSICAL EXAMINATION: VITAL SIGNS: Temperature 98.3, pulse 77, respiratory rate 20, saturating 98% on room air, blood pressure 175/84. She feels anxious though. GENERAL: Awake, alert, oriented x3, in no distress. HEENT: Normocephalic, atraumatic. NECK: Supple. LUNGS: Clear. CARDIOVASCULAR: S1, S2. No S3 or S4. No murmurs. ABDOMEN: Soft. Positive bowel sounds. EXTREMITIES: No edema. SKIN: Warm and dry. LABORATORY WORK: CBC is unremarkable. Chemistry is unremarkable except for a glucose of 142. Troponin was 0.01, 0.01, and undetectable two more times, and negative x4. Lipase was 87. Chest x-ray was reviewed EKG was unremarkable. ASSESSMENT: 1. Chest pain. 2. History of coronary artery disease, but stable. No acute coronary syndrome. 3. Palpitations. PLAN: 1. Continue product transfer pumper. 2. We will do a nuclear stress test tomorrow, and if this is negative, she may be discharged home from the cardiac perspective. 3. She will need an outpatient monitor to assess for the palpitations unless we catch something on telemetry monitoring. 4. Thank you for letting us to participate in the care of your patient. Further recommendations per results of stress testing. Job ID: [id number]
[2020-03-30] MEDS ORDERED: hydrALAZINE 20 MG/ML VIAL SLOW IVP PRN (16:52)
[2020-03-30] MEDS ORDERED: Carvedilol 3.125 MG TAB PO SCH (17:00)
[2020-03-30] MEDS: Acetaminophen 325 MG TAB PO PRN ×2 (17:11→21:16)
[2020-03-30] MEDS: Carvedilol 6.25 MG TAB PO SCH (17:11)
--- NOTE | 2020-03-30 17:30 | HP ---
CHIEF COMPLAINT: Chest pain. HISTORY OF PRESENT ILLNESS: A 64-year-old female with a history of coronary artery disease, status post stent placement, presenting with chest pressure. She felt a jolt like symptom without any jonnathan pain. No radiation quality, somewhat nauseated, but no shortness of breath or diaphoresis. Usually, her blood pressure is 112/ 70 range, but she felt her blood pressure probably high, but she could not quantify. Chest pressure relieved here with nitroglycerin sublingual as well as patch. She did not have any headache or blurriness. No recent fever, night sweats, chills , or productive cough. No sick exposures. She had a cath done in September 2018 for LAD disease and a bare metal stent to the mid to distal LAD. She had a CT done at that time, showing no acute aortic stenosis or occlusion or aneurysm formation. She also has a history of splenic artery aneurysm, that was measured up to 1.3 cm. Her current troponin is negative. EKG showed normal sinus rhythm. The patient will be admitted for observation, rule out coronary artery syndrome as well as ischemic workup as indicated. REVIEW OF SYSTEMS: A 13-point review of systems reviewed with the patient. Pertinents addressed in the history of present illness, and the rest are negative including no nausea, vomiting, abdominal pain, constipation, diarrhea, hematuria , or dysuria. No headache, blurriness, or dizziness. Denies tingling or numbness in her extremities. No rash. ALLERGIES: SHE HAS NO KNOWN DRUG ALLERGY. MEDICATIONS: 1. Lipitor 40 mg at bedtime. 2. Dulcolax as needed. 3. Coreg 3.125 mg twice a day. 4. Plavix 75 mg daily. 5. Multivitamin. 6. Zofran 4 mg q.6 as needed. 7. Senokot two tablets. 8. Aspirin 81 mg daily. PAST MEDICAL HISTORY: 1. She had a STEMI in September 2018 followed by a bare-metal stent placement to LAD. 2. Ischemic cardiomyopathy with EF of 45% in September 2018, diastolic dysfunction, as well as mild mitral regurgitation based on the echo of 2018. 3. Hyperlipidemia. SOCIAL HISTORY: The patient does not smoke. She quit smoking in September 2018. Occasional alcohol use. FAMILY HISTORY: Father of cardiac complications. Mother of brain aneurysm. PHYSICAL EXAMINATION: VITAL SIGNS: Temperature 98.3, pulse 77, blood pressure is 175/84, and saturating 98% on room air. GENERAL: The patient is alert, oriented, does not appear to be in any acute distress. HEENT: Pupils equal, round, and reactive to light. Anicteric. Mucous membranes moist. CARDIOVASCULAR: Regular rate and rhythm without murmurs, rubs, or gallops. LUNGS: Clear to auscultation bilaterally without wheezing, rales, or rhonchi. ABDOMEN: Soft, nontender, nondistended. Good bowel sounds. EXTREMITIES: Without pitting edema. NEUROLOGIC: No focal deficits. PSYCHIATRIC: Appropriate mood and affect. LABORATORY DATA: Initial CBC in the normal range. CMP also in the normal range except lipase of 87. Troponin x4 negative. Chest x-ray, no focal consolidation or alveolar edema. IMPRESSION AND PLAN: This is a 64-year-old female with a history of coronary artery disease with bare-metal stent placement in the mid LAD, presenting with chest pressure-like sensation. She is ruled out already for acute coronary syndrome. I have consulted the cook ice cream. We will get A1c as well as lipid level. The patient does not have Lipitor in her home regimen, which I have added. I will also get echo. Keep her n.p.o. for nuclear medicine stress test tomorrow. Hypertensive urgency. She takes Coreg low-dose. We will increase the dose as her blood pressure is quite high. In addition to that, we will also provide hydralazine as needed to keep the systolic blood pressure less than 150. Full code. Job ID: [id number] MTDD
[2020-03-30] MEDS ORDERED: Atorvastatin Calcium 20 MG TAB PO SCH (21:00)
[2020-03-30] MEDS ORDERED: Atorvastatin Calcium 40 MG TAB PO SCH (21:00)
[2020-03-30] MEDS: Amlodipine 5 MG TAB PO SCH (21:16)
[2020-03-31] MEDS ORDERED: Multivit, Therapeutic 1 TAB PO SCH (09:00)
[2020-03-31] MEDS ORDERED: Clopidogrel Bisulfate 75 MG TAB PO SCH (09:00)
[2020-03-31] MEDS: Amlodipine 5 MG TAB PO SCH (09:01)
[2020-03-31] MEDS ORDERED: ADENOSINE 60 MG/20 ML VIAL ONE (09:56)
[2020-03-31] MEDS: Carvedilol 6.25 MG TAB PO SCH ×2 (12:02→16:08)
--- NOTE | 2020-03-31 13:38 | NM ---
MYOCARDIAL PERFUSION SCAN: 03/31/20 INDICATIONS: Chest pain. The patient was given 10 millicuries of technetium Sestamibi for rest imaging and 27 millicuries for stress imaging. Adenosine protocol was followed. FINDINGS: There is normal activity throughout left ventricle on stress and rest images. No evidence of reversib le ischemia. There is normal wall motion and ejection fraction. IMPRESSION: Negative Sestamibi stress test. POS: [facility]
--- NOTE | 2020-03-31 14:59 | PDOC.CPN ---
- Subjective Date: 03/31/20 Time: 14:57 Interval history: She is doing well. Her echo was unremarkable and her stress test showed no evidence of ischemia. - Review of Systems General: denies: fever/chills, weight/appetite/sleep changes, night sweats, fatigue Respiratory: denies: cough, congestion, shortness of breath, exercise intolerance Cardiovascular: denies: chest pain, palpitation, edema, paroxysmal nocturnal dyspnea, orthopnea Gastrointestinal: denies: nausea, vomiting, diarrhea, constipation, abd pain, GI bleeding Musculoskeletal: denies: pain, tenderness, stiffness, swelling, arthritis/ arthralgias Neurological: denies: numbness, syncope, seizure, weakness - Objective Allergies/Adverse Reactions: Allergies Allergy/AdvReac Type Severity Reaction Status Date / Time No Known Drug Allergies Allergy Verified 09/05/18 00:23 Visit Medications: Current Medications Acetaminophen (Tylenol) 650 mg PO Q4H PRN PRN Reason: Headache/Fever/Mild Pain (1-3) Last Admin: 03/30/20 21:16 Dose: 650 mg Amlodipine Besylate (Norvasc) 5 mg PO BID COUNTS INCLUDE 234 BEDS AT THE [facility] Last Admin: 03/31/20 09:01 Dose: 5 mg Atorvastatin Calcium (Lipitor) 40 mg PO [facility] Last Admin: 03/30/20 21:16 Dose: 40 mg Atorvastatin Calcium (Lipitor) 20 mg PO [facility] Last Admin: 03/30/20 21:16 Dose: 20 mg Bisacodyl (Dulcolax) 10 mg PO DAILYPRN PRN PRN Reason: Constipation Carvedilol (Coreg) 6.25 mg PO BID-[facility] Last Admin: 03/31/20 12:02 Dose: 6.25 mg Clopidogrel Bisulfate (Plavix) 75 mg PO DAILY COUNTS INCLUDE 234 BEDS AT THE [facility] Last Admin: 03/31/20 09:01 Dose: 75 mg Hydralazine HCl (Apresoline) 10 mg SLOW IVP Q4H PRN PRN Reason: Blood Pressure Multivitamins (Theragran) 1 tab PO DAILY COUNTS INCLUDE 234 BEDS AT THE [facility] Last Admin: 03/31/20 09:01 Dose: 1 tab Ondansetron HCl (Zofran Odt) 4 mg PO Q6H PRN PRN Reason: Nausea/Vomiting Senna/Docusate Sodium (Senokot S) 2 tab PO BIDPRN PRN PRN Reason: Constipation Vital Signs & Weight: Vital Signs Temp Pulse Resp BP BP Pulse Ox 03/31/20 12:03 98.4 F 74 16 157/70 H 98 03/31/20 09:01 77 136/74 03/31/20 07:34 98.2 F 71 16 134/68 98 03/31/20 03:57 97.8 F 81 16 134/70 98 Weight 118 lb 8 oz - Physical Exam General: alert & oriented x3 HEENT: mucus membranes moist Neck: supple neck Cardiac: regular rate and rhythm Lungs: clear to auscultation, normal breath sounds Neuro: grossly intact Abdomen: active bowel sounds Extremities: no edema Skin: clear Musculoskeletal: no pain - Labs Result Diagrams: 03/30/20 08:28 03/30/20 08:28 Troponin/CKMB Troponin I Less than 0.010 ng/mL (< 0.028) 03/30/20 18:18 - Telemetry Sinus rhythms and dysrhythmias: sinus rhythm - Assessment/Plan Assessment/Plan: 1. Chest pain 2. CAD, stable, no ACS 3. Palpitations. PLAN: - Normal stress test - Unremarkable echo. - May discharge home any time from cardiac perspective. - Follow up with Dr. Pineda in 2-4 weeks and will need monitoring as an outpatient.
[2020-03-31 16:07] VITALS: BP 142/81; TEMP 98.5
--- NOTE | 2020-04-01 08:34 | DIS ---
DATE OF ADMISSION: 03/30/2020 DATE OF DISCHARGE: 03/31/2020 PRIMARY CARE PROVIDER: Joy Stinson MD. DISCHARGE DIAGNOSES: 1. Chest pain. 2. Chest pain most likely secondary to musculoskeletal etiology. CONDITION OF PATIENT ON THE DAY OF DISCHARGE: Stable. I assessed Ms. Reed on the day of discharge. She denies any chest pain or shortness of breath. Vital signs are stable. S1 and S2 are heard, regular. Lungs are clear to auscultation bilaterally. CONSULTATIONS DURING THIS HOSPITALIZATION: Cardiology, Dr. Figueroa. DISCHARGE MEDICATIONS: 1. Aspirin 81 mg daily. 2. Amlodipine 5 mg daily, started during this hospitalization. 3. Lipitor 40 mg at bedtime. 4. Coreg 3.125 mg 2 times a day. HOSPITAL COURSE: Ms. Reed is a pleasant 64-year-old lady, who was admitted to [facility] on March 30, 2020, for chest pain. She was seen by Cardiology Service. A 2D echocardiogram showed left ventricular ejection fraction of 55% to 60% and grade 1/3 diastolic dysfunction. She had mild mitral and tricuspid regurgitation. She had nuclear stress test, which was negative. Pulmonary embolism was ruled out with negative D-dimer. Her chest pain resolved, and she is being discharged home in a stable condition. Her blood pressures were elevated during this hospitalization and she has been started on amlodipine. She has been advised to check her blood pressure and heart rate 3 times a day and show the readings to her primary care provider. Post acute care follow up with primary care provider in 3 days and with Cardiology, Dr. Figueroa, in 3 to 4 weeks. ACTIVITY: No restrictions. DIET: Heart healthy. DISCHARGE DESTINATION: Home. Many thanks for allowing me to participate in your patient's care. Please feel free to contact me with any questions or concerns. Job ID: [id number]
== END 2020-03-31 18:02 | disposition home or self-care (01) ==
LOC: ERS 08:14 → 2NO 10:53 → INTOOBSV 10:53 → 2NO 12:32
PROVIDERS: ADMIT Internal Medicine; ATTEND Internal Medicine
DX: R07.89 Other chest pain (principal); I16.0 Hypertensive urgency; I10 Essential (primary) hypertension; I25.10 Atherosclerotic heart disease of native coronary artery without angina pectoris; I25.2 Old myocardial infarction; I25.5 Ischemic cardiomyopathy; E78.5 Hyperlipidemia, unspecified; E78.00 Pure hypercholesterolemia, unspecified; Z87.891 Personal history of nicotine dependence; Z79.02 Long term (current) use of antithrombotics/antiplatelets; Z79.82 Long term (current) use of aspirin; Z79.899 Other long term (current) drug therapy; Z95.5 Presence of coronary angioplasty implant and graft
CPT/HCPCS: 71045; 78452; 80053; 82550; 83690; 84484 ×2; 85025; 85379; 93005; 93017; 93306; 94760; 99285; A9500; 36415; G0378; J0153

== ENCOUNTER 2020-10-19 10:02 | Outpatient (CLI) | payer MEDICARE ==
--- NOTE | 2020-10-19 10:39 | MMO ---
Bilateral MAMMO Bilat Screen [facility]DI+GURMEET. CLINICAL HISTORY: Patient is 65 years old and is seen for screening. The patient has no family history of breast cancer. The patient has no personal history of cancer. The patient has a history of bilateral Implants in 1990 - benign. VIEWS: The views performed were: bilateral craniocaudal with tomosynthesis and bilateral mediolateral oblique with tomosynthesis. FILMS COMPARED: The present examination has been compared to prior imaging studies performed at [facility] on 03/01/2015 and 10/12/2019, and at [facility] on 02/18/2011 and 03/02/2012. This study has been interpreted with the assistance of computer-aided detection. MAMMOGRAM FINDINGS: There are scattered fibroglandular densities. There are stable benign appearing calcifications seen in both breasts. There are no suspicious masses, suspicious calcifications, or new areas of architectural distortion. IMPRESSION: THERE IS NO MAMMOGRAPHIC EVIDENCE OF MALIGNANCY. A ROUTINE FOLLOW-UP MAMMOGRAM IN 1 YEAR IS RECOMMENDED. THE RESULTS OF THIS EXAM WERE SENT TO THE PATIENT. ACR BI-RADS Category 2 - Benign finding MAMMOGRAPHY NOTE: 1. A negative mammogram report should not delay a biopsy if a dominant of clinically suspicious mass is present. 2. Approximately 10% to 15% of breast cancers are not detected by mammography. 3. Adenosis and dense breasts may obscure an underlying neoplasm. Reported by: MARLY HONG MD Electonically Signed: [id number]
== END 2020-10-19 10:03 | disposition home or self-care (01) ==
LOC: BICMAMMO 10:02
PROVIDERS: ATTEND Family Medicine
DX: Z12.31 Encounter for screening mammogram for malignant neoplasm of breast (principal); Z98.82 Breast implant status
CPT/HCPCS: 77063; 77067

== ENCOUNTER 2024-11-11 07:58 | Outpatient (CLI) | payer MEDICARE | END 2024-11-11 07:59 | disposition home or self-care (01) | LOC: BICMAMMO 07:58 | PROVIDERS: ATTEND Family Medicine | DX: Z78.0 Asymptomatic menopausal state (principal); M85.851 Other specified disorders of bone density and structure, right thigh; M85.852 Other specified disorders of bone density and structure, left thigh | CPT/HCPCS: 77080 ==

== ENCOUNTER 2025-05-11 09:30 | Outpatient (CLI) | payer MEDICARE | END 2025-05-11 09:31 | disposition home or self-care (01) | LOC: BICMAMMO 09:30 | PROVIDERS: ATTEND Family Medicine | DX: Z12.31 Encounter for screening mammogram for malignant neoplasm of breast (principal); Z98.82 Breast implant status | CPT/HCPCS: 77063; 77067 ==